=== PATIENT | male | born 1960 | race Caucasian/White ===

== ENCOUNTER 2019-01-23 00:13 | Emergency (ER) | payer SELFPAY ==
[~2019-01-23] VITALS: Ht 185.4 cm; Wt 102.7 kg
[2019-01-23] MEDS ORDERED: INDO-15 PO (00:55)
[2019-01-23] MEDS ORDERED: ALBU0.212 IH (00:55)
[2019-01-23] MEDS ORDERED: HYDR12.530 PO (00:55)
[2019-01-23] MEDS ORDERED: ASPI81TA39 PO (00:55)
[2019-01-23] MEDS ORDERED: NITR0.3T SL (00:55)
[2019-01-23] MEDS ORDERED: LISI40TA4 PO (00:55)
[2019-01-23] MEDS ORDERED: ACETAMINOPHEN 500 MG TABLET PO ONE (02:30)
[2019-01-23 03:14] LABS: BASOPHILS % (AUTO) 0.9 % (0.0-2.0); EOSINOPHILS % (AUTO) 3.3 % (1.0-6.0); HEMATOCRIT 36.6 % (41-53); HEMOGLOBIN 12.6 g/dL (13.5-17.5); LYMPHOCYTES # (AUTO) 2.4 K/uL (1.0-4.8); MEAN CORPUSCULAR HEMOGLOBIN 32.8 pg (26.0-34.0); MEAN CORPUSCULAR HGB CONC 34.5 G/dL (31.0-37.0); MEAN CORPUSCULAR VOLUME 95 fL (80-100); MONOCYTES # (AUTO) 0.5 K/uL (0.1-1.0); MONOCYTES % (AUTO) 8.1 % (2.0-9.0); NEUTROPHILS # (AUTO) 3.2 K/uL (1.8-7.7); NEUTROPHILS % (AUTO) 49.7 % (40.0-70.0); PLATELET COUNT (AUTO) 249 K/uL (150-450); RED BLOOD CELL COUNT(AUTO) 3.85 MIL/uL (4.50-5.90)
[2019-01-23 03:30] LABS: ANION GAP 12 mmol/L (8-16); CALCIUM, TOTAL 8.3 mg/dL (8.8-10.5); CARBON DIOXIDE 27 mmol/L (22-29); CHLORIDE 105 mmol/L (98-107); CREATININE 1.04 mg/dL (0.60-1.30); GLOMERULAR FILTR. RATE CALC > 60 mL/min (>60); GLUCOSE,RANDOM 110 mg/dL (70-110); POTASSIUM 3.6 mmol/L (3.5-5.1); SODIUM SERUM 144 mmol/L (136-145); UREA NITROGEN, BLOOD 9 mg/dL (7-18)
[2019-01-23 03:31] LABS: B-TYPE NATRIURETIC PEPTIDE 18 pg/mL (0-100)
[2019-01-23 03:54] LABS: ALANINE AMINOTRANSFERASE 21 U/L (12-78); ALBUMIN 3.7 g/dL (3.4-5.0); ALKALINE PHOSPHATASE 104 U/L (46-116); ASPARTATE AMINOTRANSFERASE 28 U/L (15-37); BILIRUBIN,TOTAL 0.4 mg/dL (0.1-1.0); CREATINE KINASE, TOTAL ONLY 204 U/L (39-308); TOTAL PROTEIN, SERUM 6.5 g/dL (6.4-8.2)
[2019-01-23] MEDS ORDERED: IOVERSOL 350 MG/ML 150 ML VIAL ONE (04:05)
[2019-01-23 05:26] VITALS: BP 143/94
== END 2019-01-23 05:56 | disposition home or self-care (01) ==
LOC: EMS 00:15
DX: R55 Syncope and collapse (principal); R07.81 Pleurodynia; R42 Dizziness and giddiness; I10 Essential (primary) hypertension; Z88.8 Allergy status to other drugs, medicaments and biological substances; Z79.899 Other long term (current) drug therapy
CPT/HCPCS: 36415; 70450; 71045; 71275; 72125; 80053; 82550; 83880; 84484; 85025; 85610; 85730; 93005; 93970; 99285; Q9967